=== PATIENT | male | born 1960 | race Caucasian/White ===

== ENCOUNTER 2017-11-23 09:27 | Day surgery (SDC) | payer OTHER ==
[~2017-11-23 09:27] MED LIST: LIDOCAINE HCL 1% MPF SOL ONE; PROPOFOL 500 MG/50 ML EMU IV ONE
[2017-11-23 11:24] VITALS: O2SAT 96
[2017-11-23 11:43] VITALS: BP 125/76; PULSE 61; RESP 20; TEMP 97.4
== END 2017-11-23 11:55 | disposition home or self-care (01) | DRG 951 ==
LOC: SURG 09:27
PROVIDERS: ATTEND Surgery
DX: Z12.11 Encounter for screening for malignant neoplasm of colon (principal); D12.4 Benign neoplasm of descending colon; K57.30 Diverticulosis of large intestine without perforation or abscess without bleeding; Z86.010 Personal history of colon polyps
CPT/HCPCS: 99001; J2001; J2704

== ENCOUNTER 2017-12-01 14:43 | Outpatient (CLI) | payer OTHER | END 2017-12-01 14:44 | disposition home or self-care (01) | DRG 554 | LOC: CONVCARE 14:43 | PROVIDERS: ATTEND Orthopaedic Surgery | DX: M12.842 Other specific arthropathies, not elsewhere classified, left hand (principal); M18.0 Bilateral primary osteoarthritis of first carpometacarpal joints; M12.841 Other specific arthropathies, not elsewhere classified, right hand | CPT/HCPCS: 73130 ==